=== PATIENT | female | born 1995 | race Caucasian/White ===

== ENCOUNTER 2018-10-20 22:30 | Emergency (ER) | payer MEDICAID ==
[~2018-10-20 22:30] MED LIST: ACE3 PO; CEP500 PO; CIP500 PO; LOR5/325 PO; NO ROUTINE MEDS; [UNRECOGNIZED DRUG - OTHER]
--- NOTE | 2018-10-20 22:32 | ER Report ---
History and Physical Time Seen By MD: 22:32 HPI/ROS CHIEF COMPLAINT: Right lower toothache HISTORY OF PRESENT ILLNESS: 23-year-old female at 17 weeks of , has a fractured tooth. It's been present for some time in her right lower posterior molar. Over the last few days. It began to bother her. Tonight. It's unbearably painful. She took Tylenol apply heating pad without improvement. She states she tried to get into a dentist here in [place] today was unsuccessful. She has an appointment tomorrow to see a dentist in [place]. Patient notes no difficulty swallowing or breathing. She describes throbbing pain in the right lower jaw 03/28. Allergies: Coded Allergies: No Known Allergies (Unverified Allergy, Mild, 10/20/18) Home Meds Active Scripts Hydrocodone Bit/Acetaminophen (HYDROCODON-ACETAMINOPHEN 5-325) 1 Each Tablet, 1 EACH PO Q4-6H for pain, #10 TAKE ONE TABLET BY MOUTH EVERY 4-6 HOURS NEEDED FOR PAIN Prov:JULIANNE SETH DO 10/20/18 Amoxicillin 500 Mg Tab (AMOXICILLIN 500 MG TAB) 500 Mg Tablet, 1 TAB PO Q8H for infection, #30 TAB Prov:JULIANNE SETH DO 10/20/18 Reported Medications Vits W-Ca,Fe,Fa(<1MG) ( VITAMINS) 1 Each Tablet, 1 EACH PO DAILY, TAB 10/20/18 Discontinued Reported Medications Ciprofloxacin (Cipro) 500 Mg Tab, 500 MG PO BID, 0 Refills 07/18/10 [Depro Shot] No Conflict Check, 0 Refills 07/18/10 [No Routine Meds] No Conflict Check 03/19/08 Reviewed Nurses Notes: Yes Old Medical Records Reviewed: Yes Constitutional Vital Sign - Last 24 Hours 10/20/18 22:38 Temp 98.0 Pulse 105 Resp 16 B/P (MAP) 118/78 Pulse Ox 95 O2 Delivery Room Air Physical Exam General appearance: Alert no distress. HEENT: TMs normal, TMJs nontender, examination of the oropharynx reveals a tooth with the medial half fractured off at position number #31. There is some oma rounding gum inflammation. Palpation of the neck tissues reveals no lymphadenopathy or induration Respiratory: Chest is non tender, lungs are clear to auscultation. Cardiac: Regular rate and rhythm DIFFERENTIAL DIAGNOSIS: After history and physical exam differential diagnosis was considered for toothache, tooth abscess, dental pain, Medical Decision Making ED Course/Re-evaluation ED Course Patient was admitted to an examination room. H&P was done. The differential diagnoses was considered. On clinical examination. Patient has a fractured tooth with significant pain. She's been unable to control with Tylenol. She's unfortunately can't take any NSAIDs. She does have an appointment with the dentist tomorrow. She'll be treated with amoxicillin 5 mg 3 times a day. To be given a limited supply of Lortab pain relievers. She is advised to use caution in taking extra Tylenol since she does not exceed 3000 mg per day. Patient advised warm compresses to the affected area Decision to Disposition Date: Oct 20, 2018 Decision to Disposition Time: 22:44 Depart Departure Latest Vital Signs Vital Signs Date Time Temp Pulse Resp B/P (MAP) Pulse Ox O2 Delivery O2 Flow Rate FiO2 10/20/18 22:38 98.0 105 16 118/78 95 Room Air Impression: Primary Impression: Toothache Additional Impression: 17 weeks gestation of Condition: Improved Disposition: HOME OR SELF-CARE Referrals: AL ANNE MD (PCP) New Scripts Hydrocodone Bit/Acetaminophen (HYDROCODON-ACETAMINOPHEN 5-325) 1 Each Tablet 1 EACH PO Q4-6H for pain, #10 TAKE ONE TABLET BY MOUTH EVERY 4-6 HOURS NEEDED FOR PAIN Prov: JULIANNE SETH DO 10/20/18 Amoxicillin 500 Mg Tab (AMOXICILLIN 500 MG TAB) 500 Mg Tablet 1 TAB PO Q8H for infection, #30 TAB Prov: JULIANNE SETH DO 10/20/18 Patient Instructions: Toothache (ED) Additional Instructions: Use additional Tylenol for pain relief. Be cautious not to take in excess of 3000 mg per day. The Lortab pain pills have 325 mg of Tylenol in each tablet. These include this in your calculations Follow-up with dentist in [place] as planned tomorrow. Problem Qualifiers JULIANNE SETH DO Oct 20, 2018 22:32
[2018-10-20 22:38] VITALS: BP 118/78
[2018-10-20] MEDS ORDERED: PREN-127 PO (22:41)
[2018-10-20] MEDS ORDERED: LOR5/325 PO (22:45)
[2018-10-20] MEDS ORDERED: AMOX500T10 PO (22:45)
[2018-10-20] MEDS ORDERED: ACET/HYDROC 5/325MG TH ER ONLY 2 TAB/BOTTLE PO ONE (22:50)
[2018-10-20] MEDS ORDERED: AMOXICILLIN 500 MG CAP PO ONE (22:50)
== END 2018-10-20 23:10 | disposition home or self-care (01) ==
LOC: ER 22:46
DX: O26.892 Other specified pregnancy related conditions, second trimester (principal); Z3A.17 17 weeks gestation of pregnancy
CPT/HCPCS: 99283

== ENCOUNTER 2019-03-23 19:32 | Inpatient (IN) | payer MEDICAID ==
[~2019-03-23] VITALS: Ht 170.2 cm; Wt 68.9 kg
[~2019-03-23 19:32] MED LIST changes: +AMOX500T10 PO; +PREN-127 PO
[2019-03-23] MEDS ORDERED: FAMOTIDINE(*) 20MG/50ML PREMIX 50 ML IVPB PRN (19:36)
[2019-03-23] MEDS ORDERED: LIDOCAINE/PF 2% 200MG/10ML AMP 200 MG/10 ML AMPUL EPI PRN (19:40)
[2019-03-23] MEDS ORDERED: MISOPROSTOL 25 MCG CAP PV PRN (19:40)
[2019-03-23] MEDS ORDERED: BUPIVACAINE 0.5% INJ 30ML VIAL EPI PRN (19:40)
[2019-03-23] MEDS ORDERED: ACETAMINOPHEN 500 MG TAB PO PRN (19:40)
[2019-03-23] MEDS ORDERED: METOCLOPRAMIDE 10 MG/2 ML SDV IVP PRN (19:40)
[2019-03-23] MEDS ORDERED: cefOXitin/DEX(*) 2GM/50ML PREM 50 ML IVPB PRN (19:40)
[2019-03-23] MEDS ORDERED: BUPIVACAINE 0.25% MPF INJ EPI PRN (19:40)
[2019-03-23] MEDS ORDERED: FENTANYL/ROPIVACAINE 100 ML BAG EPI PRN (19:40)
[2019-03-23] MEDS ORDERED: ONDANSETRON 4 MG/2 ML VIAL IVP PRN (19:40)
[2019-03-23] MEDS ORDERED: LIDOCAINE/SOD BICARB 8.4% SYR SC PRN (19:40)
[2019-03-23] MEDS ORDERED: LIDOCAINE 1% LOCAL 300 MG/30ML INJ PRN (19:40)
[2019-03-23] MEDS ORDERED: LIDO/EPI 2% MPF 1:200,000 20ML EPI PRN (19:40)
[2019-03-23] MEDS ORDERED: fentaNYL CITR 100 MCG/2 ML AMP IT PRN (19:40)
[2019-03-23] MEDS ORDERED: DINOPROSTONE 10 MG INSERT PV ONE (19:40)
[2019-03-23] MEDS ORDERED: TERBUTALINE SULF 1 MG/ML VIAL SUBQ PRN (19:40)
[2019-03-23] MEDS ORDERED: ZOLPIDEM TARTRATE 5 MG TAB PO PRN (19:40)
[2019-03-23 20:12] VITALS: BP 113/60; Ht 170.2 cm; Wt 68.9 kg
[2019-03-23 20:24] LABS: PLATELET COUNT, AUTOMATED 219 K/uL (150-450)
--- NOTE | 2019-03-23 21:24 | Anesthesia OB Pre-Anes Eval ---
History of Present Illness Anesthesia Start Date: Mar 23, 2019 Anesthesia Start Time: 21:09 OB Anesthesia Diagnosis: induction - medical (post dates) Complications: none known EDC: Mar 22, 2019 : 1 Para: 0 Vital Signs: Epidural anesthesia risks, complications and benefits explained to patient's satisfaction for labor and vaginal delivery and/or section. Hematology Test 03/23/19 20:11 White Blood Count 12.4 k/uL (4.5-11.0) H Red Blood Count 4.46 M/uL (4.17-5.56) Hemoglobin 14.7 g/dL (12.0-16.0) Hematocrit 42.3 % (34.0-47.0) Mean Corpuscular Volume 94.8 fL (80.0-96.0) Mean Corpuscular Hemoglobin 32.8 pg (26.0-33.0) Mean Corpuscular Hemoglobin Concent 34.6 g/dL (32.0-36.0) Red Cell Distribution Width 13.2 % (11.5-14.5) Platelet Count 219 K/uL (150-450) Mean Platelet Volume 10.2 fL (7.2-11.1) Neutrophils (%) (Auto) 76.9 % (39.4-72.5) H Lymphocytes (%) (Auto) 15.9 % (17.6-49.6) L Monocytes (%) (Auto) 5.5 % (4.1-12.4) Eosinophils (%) (Auto) 0.5 % (0.4-6.7) Basophils (%) (Auto) 1.2 % (0.3-1.4) Nucleated RBC Relative Count (auto) 0.1 /100WBC Neutrophils # (Auto) 9.5 K/uL (2.0-7.4) H Lymphocytes # (Auto) 2.0 K/uL (1.3-3.6) Monocytes # (Auto) 0.7 K/uL (0.3-1.0) Eosinophils # (Auto) 0.1 K/uL (0.0-0.5) Basophils # (Auto) 0.1 K/uL (0.0-0.1) Nucleated RBC Absolute Count (auto) 0.01 K/uL Pain Ratin Heart Tones: 133 Result Diagram: 03/23/192010 Height (Inches): 67 Weight (Pounds): 141 BMI (kg/m2): 23 Past Medical History Medical History: no pertinent history Surgical History: no surgical history, other (11/04 dental procedure) Previous Anesthesia: other (local, states ) Attended Childbirth Classes?: No Hx Anesthesia Reactions: No Hx Family Anesthesia Reaction: No Current Medications: pitocin, other (cervidil) Home Meds Reported Medications Vits W-Ca,Fe,Fa(<1MG) ( VITAMINS) 1 Each Tablet, 1 EACH PO DAILY, TAB 10/20/18 Discontinued Scripts Hydrocodone Bit/Acetaminophen (HYDROCODON-ACETAMINOPHEN 5-325) 1 Each Tablet, 1 EACH PO Q4-6H for pain, #10 TAKE ONE TABLET BY MOUTH EVERY 4-6 HOURS NEEDED FOR PAIN Prov:JULIANNE SETH DO 10/20/18 Amoxicillin 500 Mg Tab (AMOXICILLIN 500 MG TAB) 500 Mg Tablet, 1 TAB PO Q8H for infection, #30 TAB Prov:JULIANNE SETH DO 10/20/18 Allergies: Coded Allergies: No Known Allergies (Unverified Allergy, Mild, 10/20/18) Anesthesia OB ROS Neurological: No migraines/headaches, No seizures, No neuropathy, No other Eyes ROS: contacts out ENT: Denies Tooth caps, Denies Loose teeth, Denies Chipped teeth, Denies Dentures, Denies Bridges, Denies Retainers, Denies Veneers, Denies Implants, Denies Tongue ring, Denies Other Pulmonary: No asthma; smoker (pks/day/yrs) (.25 2 years); No other Airway Class: ll Cardiovascular ROS: No edema, No arrhythmia, No other GI ROS: other (regular until epidural completed then clear liquids) ROS: No Herpes, No STD(s), No Liver Disease, No Renal Disease, No Other Endocrine ROS: No diabetes, No gestational diabetes, No thyroid disorder, No other Musculoskeletal ROS: No low back pain, No low back injury, No scoliosis, No other ASA Classification: 2 Assessment and Plan Anesthesia Plan: CSE Assessment: Pt is pre-labor and in no distress. She, her, current significant other and her best friend alll in room for anesthesia consent and counseling. Questions entertained and answered. ELOY PRUITT CRNA Mar 23, 2019 21:24
[2019-03-23] MEDS ORDERED: OXYTOCIN 30 UNIT/NS 500 ML 500 ML ONE (21:55)
[2019-03-23] MEDS: LR(*) 1000 ML BAG 1,000 ML IV PRN (22:13)
[2019-03-24] MEDS: fentaNYL CITR 100 MCG/2 ML AMP IVP PRN ×2 (04:43→04:51)
[2019-03-24] MEDS ORDERED: OXYTOCIN 30 UNIT/NS 500 ML 500 ML IV PRN (05:01)
[2019-03-24] MEDS ORDERED: ePHEDrine 25 MG/5 ML DISP.SYR IVP ONE (05:12)
[2019-03-24] MEDS ORDERED: ePHEDrine 25 MG/5 ML DISP.SYR IVP PRN (05:25)
[2019-03-24] MEDS: LR(*) 1000 ML BAG 1,000 ML IV PRN (06:06)
--- NOTE | 2019-03-24 06:36 | Procedure Note ---
Anesthetic Placement Note Anesthesia Plan: CSE Permit for Anesthesia Signed: Yes Anesthesia Technique: Patient Sitting Anesthesia Prep: Chlorhexidine (Sterile procedure, traffic stopped. 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 MEAT PROCESSING CENTER MANAGER hand scrubbed, Time out done, sterile gloves and mask, clear fenestrated drape.) Interspace: L 3-4 (midline) Local Anesthetic: 1% Lidocaine, 25 Gauge Needle Amount Local - cc's: 2 Anesthesia Needle: 17g Touhy/Schliff Anesthesia Attempts: 1 Loss of Resistance: Normal Saline Depth of JORGE (cm): 6 Epidural Needle Placement: No CSF, No Blood, No Parasthesia Intrathecal Needle: 27 Gauge Pencan Cerebral Spinal Fluid: Yes, Clear Catheter Insertion (cm): 3.6 Catheter Type: Anaya - Spring Wound Epidural Dressing: Tegaderm, Tape (rt abdomen) Anesthesia Tray: Lot Number ([id number]), Expiration Date (2020-02-16), Reference Number ([id number]) Comment: Pt relates pain decrease from 9/10 to 0/10 within 3 minutes of intrathecal dose. No bolus dose given, as pump will establish an adequate block level, by the time the intrathecal wears off. VSS, pt pleasant and alert w + motor to legs bilat. T-8 Anesthesia Medications: Intrathecal Dose: mcg Fentanyl (20), Time (0540) Epidural Test Dose: 1.5 Lido/Epi (1:200,000), Dose - mL (3), Time (0551), Negative Epidural Loading Dose: Other Epidural Infusion: 0.2% Ropivicaine, With Fentanyl 2mcg/ml, Start Time: (0617) Epidural Pump Setting: Bolus Dose - mL (6), Lockout - Minutes (20), Maintenance Rate - mL/hr (8), Maximum per Hour - mL (26) Complications: None Comment: Ephedrine at bedside per RN, Stable and comfortable. ELOY PRUITT MEAT PROCESSING CENTER MANAGER Mar 24, 2019 06:36
--- NOTE | 2019-03-24 08:19 | History & Physical ---
History of Present Illness Age of Patient: 24 : 1 Para or TPAL: 0 EDC per LMP: Mar 22, 2019 Estimated Gestational Age: 40.2 Chief Complaint IOL History of Present Illness Presents for IOL at term due to post EDC and elective. has been uncomplicated. Past Medical, Surgical, Family and Obstetric Histories reviewed. Please see [facility] [place], [place] chart. History Allergies: Coded Allergies: No Known Allergies (Unverified Allergy, Mild, 10/20/18) Med Rec Home Meds Reported Medications Vits W-Ca,Fe,Fa(<1MG) ( VITAMINS) 1 Each Tablet, 1 EACH PO DAILY, TAB 10/20/18 Discontinued Scripts Hydrocodone Bit/Acetaminophen (HYDROCODON-ACETAMINOPHEN 5-325) 1 Each Tablet, 1 EACH PO Q4-6H for pain, #10 TAKE ONE TABLET BY MOUTH EVERY 4-6 HOURS NEEDED FOR PAIN Prov:JULIANNE SETH DO 10/20/18 Amoxicillin 500 Mg Tab (AMOXICILLIN 500 MG TAB) 500 Mg Tablet, 1 TAB PO Q8H for infection, #30 TAB Prov:JULIANNE SETH DO 10/20/18 Review of Systems All Systems Reviewed/Normal: Yes, Except as Noted Exam General Exam Vital Signs Vital Signs Date Time Temp Pulse Resp B/P (MAP) Pulse Ox O2 Delivery O2 Flow Rate FiO2 03/23/19 20:12 97.7 88 16 113/60 (77) 96 Room Air General Apperance: Alert/Awake/No Acute Distress Neuro: No Gross deficits Eyes: Normal Extraocular Movement & Vison Respiratory: No Respiratory Distress Abdomen: Soft, Non-Tender, Non-Distended Extremities: No Cyanosis,Clubbing or Edema Integumentary: Skin Intact without Lesions or Rash Psychological: Alert & Oriented X3, Appropriate Mood & Affect Cervical Dialation: 1.5 (RN exam on admission) Cervical Effacement (%): 70 Station: -2 Presentation: Vertex (by bedside u/s) Fetus Feeling Movement?: Yes Heart Tone Variabilty: Moderate FHT Accelerations: 15X15 FHT Category: I Medical Decision Making Data Points Result Diagram: 03/23/192010 VTE Prophylasis: Adult Deep Vein Thrombosis/Pulmonary: No Pharmacological Contraindicati: Pt at Low Risk for VTE Mechanical Contraindications: Pt at Low Risk for VTE 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 Received epidural and then moved quickly to 5.5 at 0719 and is now completely dilated. Will start second stage labor and continue to monitor progress. FHTs cat1 throughout, currently with early decelerations. TYLER RUSH MD Mar 24, 2019 08:19
[2019-03-24] MEDS ORDERED: BENZOCAINE 20% 60 ML BTL TP PRN (08:20)
[2019-03-24] MEDS ORDERED: INFLUENZA VIRUS VAC 0.5ML SYR IM ONLY ONE (08:20)
[2019-03-24] MEDS ORDERED: GLYCERIN/WITCH HAZEL LEAF 1 PK TP PRN (08:20)
[2019-03-24] MEDS ORDERED: LANOLIN OINT 7 GM TUBE TP PRN (08:20)
[2019-03-24] MEDS ORDERED: HYDROCORTISONE 2.5% CR 30GM TB PR PRN (08:20)
[2019-03-24] MEDS ORDERED: APAP/HYDROCODONE 325/5 TAB PO PRN (08:20)
[2019-03-24] MEDS ORDERED: MAGNESIUM HYDROXIDE* 30ML UDCP PO PRN (08:20)
--- NOTE | 2019-03-24 08:21 | Anesthesia Progress Note ---
Progress/Maintenance Anesthesia Note Date: Mar 24, 2019 Anesthesia Note Time: 08:05 Pain Intensity: 7 Pump: On Pump Rate (ML/HR): 8 Sensory Level: Perineal pain Motor Level: Bending Knees-Bilateral Dilatation: 10 Position: Semi-Fowlers Drug Bolus: 0.25% Marcaine (7ml), Other (Fentanyl 50 mcg) Anesthesia Treatment: Pt ready to push, VSS s/p bolus, She reports some relief of perineal pain. ELOY PRUITT CRNA Mar 24, 2019 08:21
[2019-03-24] MEDS ORDERED: IBUPROFEN 800 MG TAB PO SCH (09:00)
[2019-03-24] MEDS: DOCUSATE CALCIUM 240 MG CAP PO SCH ×2 (09:00→21:22)
--- NOTE | 2019-03-24 09:30 | OB Delivery Note ---
Delivery Note Vaginal Delivery Type: Spont. Vaginal Delivery Delivery Date: Mar 24, 2019 Delivery Time: 08:57 Estimated Gestational Age(wks): 40.1 Delivery Anesthesia: Epidural, Local Sex: Female Weight (gms): 2914 Apgars: 1 Minute (8), 5 Minute (9) Repair Needed: Laceration, 1st Degree Estimated Blood Loss: 100 Delivery Complications: Laceration Notes: Pt progressed to complete and began second stage labor. Effective pushing and brought baby to . Perineum stabilized while head delivered over first degree laceration. Shoulders delivered spontaneously. Placenta delivered spontaneously and intact. Repair with 2-0 Chromic without complication. No complications. Member Certification Manager in Attendence: No Copies to: TYLER RUSH MD ; TYLER RUSH MD Mar 24, 2019 09:30
--- NOTE | 2019-03-24 09:44 | Anesthesia Progress Note ---
Progress/Maintenance Anesthesia Note Date: Mar 24, 2019 Anesthesia Note Time: 09:34 Pain Intensity: 0 Pump: Off Sensory Level: T-12 Motor Level: Bending Knees-Bilateral Position: Semi-Fowlers Assessment and Plan Anesthesia Plan: CSE Assessment: CSE and epidural worked better for early labor than for after transition. Pump bolus followed by CARBONATING STONE CLEANER administered bolus provided some relief. block was supplemented with pudental block per Dr. Rivers, for delivery. Delivery of active crying female 0854 1st degree tear repair until 0910. Pump off at 0915, sterile syringe to epidural catheter. Assessment Alert with resolving block to cold, T-12, VSS. Lochia moderate, uterus firm. Anesthesia Stop Day: Mar 24, 2019 Anesthesia Stop Time: 09:10 ELOY PRUITT CRNA Mar 24, 2019 09:44
[2019-03-24] MEDS ORDERED: LIDOCAINE 1% LOCAL 300 MG/30ML 30 ML ONE (09:45)
[2019-03-24] MEDS: IBUPROFEN 800 MG TAB PO SCH ×3 (10:00→19:09)
[2019-03-24 10:21] VITALS: BP 111/66
[2019-03-24 13:52] VITALS: BP 102/66
[2019-03-24] MEDS: ACETAMINOPHEN 325 MG TAB PO PRN (15:01)
[2019-03-24 16:55] VITALS: BP 113/66
[2019-03-24 19:00] VITALS: BP 105/69
[2019-03-24 23:30] VITALS: BP 122/70
[2019-03-25] MEDS: ACETAMINOPHEN 325 MG TAB PO PRN (00:09)
[2019-03-25 02:45] VITALS: BP 96/57
[2019-03-25] MEDS: IBUPROFEN 800 MG TAB PO SCH ×2 (02:55→11:06)
--- NOTE | 2019-03-25 06:39 | Anesthesia Progress Note ---
Progress/Maintenance Anesthesia Note Date: Mar 25, 2019 Anesthesia Note Time: 06:30 Pain Intensity: 2 Pump: Off Motor Level: Bending Knees-Bilateral (BLOCK RESOLVED. pT HAS NOT AMBULATED YET.) Assessment and Plan Anesthesia Plan: LEB Assessment: Alert w in arms at breast. . able to sit up and lean forward for epidural removal. Site is w/o redness swelling or drainage. Epidural Catheter Removal: Removed Catheter Intact, Yes, Removed by: (Eloy Hopkins CRNA) Removal Date: Mar 25, 2019 Removal Time: 06:34 Condition Sterile bandaid placed. Signs of infection are reviewed. Pt and FOB agree to seek medical attention should infection sx or persistent CONRAD occur. ELOY HOPKINS CRNA Mar 25, 2019 06:39
--- NOTE | 2019-03-25 06:49 | Anesthesia Post Eval Note ---
Anesthesia Post Eval Note Tolerated procedure well without apparent anesthetic complications. LP site edmar r, no redness or edema. Denies headache or any residual paresthesia. Vital Signs Stable, Patient comfortable and condition stable. Hematology Test 03/23/19 20:11 03/25/19 06:25 Neutrophils (%) (Auto) 76.9 % (39.4-72.5) H Lymphocytes (%) (Auto) 15.9 % (17.6-49.6) L Monocytes (%) (Auto) 5.5 % (4.1-12.4) Eosinophils (%) (Auto) 0.5 % (0.4-6.7) Basophils (%) (Auto) 1.2 % (0.3-1.4) Nucleated RBC Relative Count (auto) 0.1 /100WBC Neutrophils # (Auto) 9.5 K/uL (2.0-7.4) H Lymphocytes # (Auto) 2.0 K/uL (1.3-3.6) Monocytes # (Auto) 0.7 K/uL (0.3-1.0) Eosinophils # (Auto) 0.1 K/uL (0.0-0.5) Basophils # (Auto) 0.1 K/uL (0.0-0.1) Nucleated RBC Absolute Count (auto) 0.01 K/uL White Blood Count 9.4 k/uL (4.5-11.0) Red Blood Count 4.11 M/uL (4.17-5.56) L Hemoglobin 13.4 g/dL (12.0-16.0) Hematocrit 39.4 % (34.0-47.0) Mean Corpuscular Volume 95.7 fL (80.0-96.0) Mean Corpuscular Hemoglobin 32.7 pg (26.0-33.0) Mean Corpuscular Hemoglobin Concent 34.2 g/dL (32.0-36.0) Red Cell Distribution Width 13.3 % (11.5-14.5) Platelet Count 179 K/uL (150-450) Mean Platelet Volume 10.1 fL (7.2-11.1) Vital Signs Date Time Temp Pulse Resp B/P (MAP) Pulse Ox O2 Delivery O2 Flow Rate FiO2 03/25/19 02:45 70 16 96/57 (70) 94 Room Air 03/24/19 23:30 97.4 Pt able to participate in Eval: Yes Cardiovascular Status: Satisfactory Respiratory Status: Satisfactory Pain Managment: Satisfactory PO Nausea/Vomiting: Satisfactory Temperature Management: Satisfactory Mental Status: Satisfactory, Alert, Oriented X3 Post-Op Hydration Status: Satisfactory, Tolerating PO Well, Voiding w/o Difficu lty Anesthesia Type: CSE Anesthesia Tolerance: Tolerated procedure well without apparent anesthetic complications. Condition stable. ELOY PRUITT CRNA Mar 25, 2019 06:49
[2019-03-25] MEDS ORDERED: DIPHTH/TETANUS/ACEL. PERTUSSIS IM ONLY ONE (09:00)
[2019-03-25] MEDS ORDERED: MEASLES,MUMP,RUBELLA VAC 0.5ML SUBQ ONE (09:00)
--- NOTE | 2019-03-25 09:09 | OB/GYN Progress Note ---
OB Subjective Progress Notes Subjective Feeling well. She will be bottle feeding. Up to bathroom well and voiding well. Pain well controlled. Wants to go home. GI: NEG Nausea : Voiding Well Pain: Mild OB Objective Physical Exam Vital Signs Date Time Temp Pulse Resp B/P (MAP) Pulse Ox O2 Delivery O2 Flow Rate FiO2 03/25/19 02:45 70 16 96/57 (70) 94 Room Air 03/24/19 23:30 97.4 Intake and Output 03/25/19 07:03 Intake Total 1510 ml Output Total 1150 ml Balance 360 ml Intake Oral 60 ml IV Total 1450 ml Output Urine Total 1150 ml # Voids 2 General Appearance: Alert/Awake/No Acute Distress Neurological: No Gross deficits Eyes: Normal Extraocular Movement & Vison Cardiovascular: Normal Rhythm & Peripheral Pulses, Regular Rate and Rhythm Respiratory: No Respiratory Distress, Clear to Auscultation Abdomen: Soft, Non-Tender, Non-Distended, Fundus Firm, Non-Tender Extremities: No Cyanosis,Clubbing or Edema Integumentary: Skin Intact without Lesions or Rash Psychological: Alert & Oriented X3, Appropriate Mood & Affect Result Diagram: 03/25/19 0625 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 IBU for pain. F/U at 6 weeks in office. TYLER RUSH MD Mar 25, 2019 09:09
[2019-03-25] MEDS ORDERED: DOCU240C67 PO (09:11)
[2019-03-25] MEDS ORDERED: IBUP800T37 PO (09:11)
--- NOTE | 2019-03-25 09:13 | OB/GYN Discharge Summary ---
Discharge Summary Reason for Hosp/Final Diag: (1) 40 weeks gestation of Hospital Course & Plan: Reviewed and wrapping breasts to prevent let down response. IBU for pain. F/U at 6 weeks in office. Lates Vital Signs Vital Signs Date Time Temp Pulse Resp B/P (MAP) Pulse Ox O2 Delivery O2 Flow Rate FiO2 03/25/19 02:45 70 16 96/57 (70) 94 Room Air 03/24/19 23:30 97.4 Weight (Pounds): 152 Result Diagram: 03/25/19 0625 Condition: Improved Discharge: Home, Self Detention Meds Reported Medications Vits W-Ca,Fe,Fa(<1MG) ( VITAMINS) 1 Each Tablet, 1 EACH PO DAILY, TAB 10/20/18 Discontinued Scripts Hydrocodone Bit/Acetaminophen (HYDROCODON-ACETAMINOPHEN 5-325) 1 Each Tablet, 1 EACH PO Q4-6H for pain, #10 TAKE ONE TABLET BY MOUTH EVERY 4-6 HOURS NEEDED FOR PAIN Prov:JULIANNE SETH DO 10/20/18 Amoxicillin 500 Mg Tab (AMOXICILLIN 500 MG TAB) 500 Mg Tablet, 1 TAB PO Q8H for infection, #30 TAB Prov:JULIANNE SETH DO 10/20/18 Follow up Referrals: FERRIS WHEEL OPERATOR - In 6 Weeks @ [facility] with TYLER RIVERS MD Follow up with: Dr. Rivers [phone] Follow up in: 6 wks PP or PO Discharge Diet: As Tolerates Discharge Activity: As Tolerates, No Heavy Lifting x 6 wks, No Heavy Lifting > 10lb, Pelvic Rest Copies to: TYLER RIVERS MD ; TYLER RIVERS MD Mar 25, 2019 09:13
[2019-03-25] MEDS: DOCUSATE CALCIUM 240 MG CAP PO SCH (11:06)
[2019-03-25 11:09] VITALS: BP 106/70
== END 2019-03-25 11:20 | disposition home or self-care (01) | DRG 807 ==
LOC: OBSVTOIN 19:32 → OB 19:32
PROVIDERS: ADMIT Obstetrics & Gynecology; ATTEND Obstetrics & Gynecology
PROC: 3E0P7VZ Introduction of Hormone into Female Reproductive, Via Natural or Artificial Opening (ICD-10-PCS; 2019-03-23)
PROC: 10E0XZZ Delivery of Products of Conception, External Approach (ICD-10-PCS; principal; 2019-03-24)
PROC: 0HQ9XZZ Repair Perineum Skin, External Approach (ICD-10-PCS; 2019-03-24)
DX: O48.0 Post-term pregnancy (principal); Z37.0 Single live birth; O70.0 First degree perineal laceration during delivery; Z3A.40 40 weeks gestation of pregnancy
CPT/HCPCS: 36415; 85025; 85027; 86850; 86900; 86901; J2001; J2590; J3010; J7120; S0020